=== PATIENT | male | born 1950 | race Caucasian/White ===

== ENCOUNTER 2017-10-21 14:28 | Emergency (ER) | payer MEDICARE, MEDICAID ==
[~2017-10-21] VITALS: Ht 167.6 cm; Wt 68.0 kg
[~2017-10-21 14:28] MED LIST: ASPIRIN81 M2 PO; CARVEDILOL12.5 MG PO; DIGOXIN125 MCG PO; DIGOXIN250 MCG PO; DILTIAZEM 24HR120 M2 PO; DILTIAZEM 24HR240 M1 PO; DIOVAN 80 MG TA80 M1 PO; HYDROCODONE-AP1 EAC6 PO; IBUPROFEN 800800 M1 PO; LOPRESSOR50; MORPHINE SULFAT30 M1 PO; OXYCONTIN20 M1 PO; PRADAXA150 MG PO; VALSARTAN-HCTZ1 EAC2 PO
[2017-10-21] MEDS ORDERED: PREDNISONE 20 M20 M1 PO (15:36)
[2017-10-21] MEDS ORDERED: ZPAK PO (15:36)
[2017-10-21 15:44] VITALS: BP 138/108
--- NOTE | 2017-10-22 13:20 | EKG ---
[place] [address] ELECTROCARDIOGRAM REPORT Name: MARCIN MAGDALENO Room: [facility]#: [id number] Admission: 10/21/17 Attend Phys: Discharge: 10/21/17 Date of : 52 Report #: [id number] THIS REPORT FOR: //name// [facility] ED Test Date: 2017-10-21 Test Time: 14:49:20 Pat Name: MARCIN MAGDALENO Department: Room: Gender: M Imaging Assistant: Lilibeth WYLIE : 1950 Requested By: Dennis Galeano Order Number: [id number] MD: Adrien Hunter Measurements Intervals [place] Rate: 158 P: [place]: QRS: 111 QRSD: 97 T: 117 QT: 306 QTc: 496 Interpretive Statements Atrial fibrillation with rapid V-rate Right axis deviation Low voltage, extremity leads Repolarization abnormality, prob rate related Baseline wander in lead(s) V3,V4 Compared to ECG 11/04/2016 20:26:13 Right-axis deviation now present Low QRS voltage now present Early repolarization now present Myocardial infarct finding no longer present Electronically Signed On 10-22-2017 13:20:20 CYLINDER FILLER by Adrien Hunter [email or web address] <ELECTRONICALLY SIGNED> By: Adrien Hunter MD, FACC 10/22/17 1320 1449 1449 Adrien Hunter MD, FACC /EPI
== END 2017-10-21 15:45 | disposition home or self-care (01) ==
LOC: M.ERS 14:28
DX: I48.91 Unspecified atrial fibrillation (principal); J40 Bronchitis, not specified as acute or chronic; I10 Essential (primary) hypertension